=== PATIENT | female | born 2000 | race Caucasian/White ===

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

== ENCOUNTER 2022-01-31 01:28 | Emergency (ER) | payer OTHER ==
[~2022-01-31] VITALS: Ht 152.4 cm; Wt 47.6 kg
[~2022-01-31 01:28] MED LIST changes: +ALBU-118 IH; -ALBU-136 IH
[2022-01-31 01:44] VITALS: BP 147/91
--- NOTE | 2022-01-31 02:29 | NUR ---
Blood for labwork drawn from right arm per aircraft shipping checker. Patient tolerated well.
[2022-01-31 02:47] LABS: BASOPHILS % (AUTO) 0.4 % (0.0-2.0); EOSINOPHILS # (AUTO) 0.2 K/uL (0-0.4); EOSINOPHILS % (AUTO) 3.3 % (0.0-4.0); HEMATOCRIT 27.8 % (36-48); HEMOGLOBIN 8.3 g/dL (12.0-16.0); LYMPHOCYTES # (AUTO) 2.1 K/uL (2.5-16.5); MEAN CORPUSCULAR HEMOGLOBIN 19 pg (27-31); MEAN CORPUSCULAR HGB CONC 30 g/dL (33-37); MEAN CORPUSCULAR VOLUME 61.7 fL (80-94); MONOCYTES # (AUTO) 0.7 K/uL (0.8-1.0); MONOCYTES % (AUTO) 9.7 % (1.7-9.3); NEUTROPHILS # (AUTO) 4.2 K/uL (1.8-7.7); NEUTROPHILS % (AUTO) 57.6 % (42.2-75.2); PLATELET COUNT (AUTO) 190 K/uL (140-450); RED BLOOD CELL COUNT(AUTO) 4.51 MIL/uL (4.20-5.40); RED CELL DISTRIBUTION WIDTH 19.1 % (11.6-13.7); WHITE BLOOD COUNT (AUTO) 7.3 K/uL (4.8-10.8)
[2022-01-31 02:53] LABS: ALBUMIN 3.6 g/dL (3.4-5.0); ANION GAP 11.2 (8-16); CARBON DIOXIDE 25.2 mmol/L (21-32); CREATININE 0.6 mg/dL (0.6-1.3); POTASSIUM 3.4 mmol/L (3.5-5.1); TOTAL BILIRUBIN 0.3 mg/dL (0.0-1.0)
--- NOTE | 2022-01-31 05:15 | NUR ---
Dr. Briscoe examining patient.
[2022-01-31 05:33] VITALS: BP 120/79
--- NOTE | 2022-01-31 05:33 | NUR ---
Patient discharged with v/s stable. Written and verbal after care instructions given and explained. Patient verbalized understanding. Ambulatory with steady gait. All questions addressed prior to discharge. Advised to follow up with PMD.
== END 2022-01-31 05:53 | disposition home or self-care (01) ==
LOC: MED 01:28
DX: R10.13 Epigastric pain (principal); R11.0 Nausea; J45.909 Unspecified asthma, uncomplicated; D64.9 Anemia, unspecified; Z79.899 Other long term (current) drug therapy
CPT/HCPCS: 36415; 80053; 81002; 81025; 83690; 85025; 99283